=== PATIENT | female | born 1970 | race Two or more races ===

== ENCOUNTER 2018-07-15 20:32 | Emergency (ER) | payer SELFPAY ==
[~2018-07-15] VITALS: Ht 157.5 cm; Wt 63.5 kg
[2018-07-15 22:43] LABS: Urine Bacteria FEW /hpf (None Seen); Urine Blood TRACE /uL (Negative); Urine Mucus FEW (None Seen); Urine WBC 2 /hpf (0 - 5)
[2018-07-16 04:41] LABS: Albumin 3.7 g/dL (3.4-5.0); BUN/Creatinine Ratio 21.5; Calcium 8.5 mg/dL (8.5-10.1); Potassium 4.1 mmol/L (3.5-5.1)
[2018-07-16 04:42] LABS: Basophils # (auto) 0 uL; Basophils % (auto) 0.3 % (0.0-2.0); Eosinophils # (auto) 0.2 uL; Eosinophils % (auto) 2.8 % (0.0-7.0); Hematocrit 42.5 % (36.0-46.0); Hemoglobin 14.2 g/dL (12.2-16.2); Lymphocytes % (auto) 32.1 % (10.0-50.0); Mean Corpuscular Hgb Conc. 33.4 g/dL (32.0-36.0); Mean Corpuscular Volume 89.7 fL (80.0-100.0); Monocytes # (auto) 0.5 uL; Monocytes % (auto) 8.1 % (0.0-12.0); Neutrophils # (auto) 3.5 uL; Neutrophils % (auto) 56.7 % (37.0-80.0); Nucleated Red Blood Cells % 0.1 %; Platelet Count (auto) 282 10^3/uL (140-450); Red Blood Cells 4.74 10^6/uL (4.0-5.20); Red Cell Distribution Width 13.3 % (11.8-14.3); White Blood Cell 6.2 10^3/uL (4.4-10.8)
[2018-07-16 04:44] LABS: Bilirubin, Total 0.5 mg/dL (0.2-1.0); Total Protein 7.7 g/dL (6.4-8.2)
[2018-07-16 07:31] VITALS: BP 118/68
[2018-07-16] MEDS ORDERED: predniSONE 20 MG TAB PO ONE (08:00)
== END 2018-07-16 09:35 | disposition home or self-care (01) ==
LOC: ER 20:36
DX: F41.9 Anxiety disorder, unspecified (principal); G51.0 Bell's palsy
CPT/HCPCS: 36415; 70450; 80053; 81001; 85025; 99284; J7512

== ENCOUNTER 2021-07-10 04:54 | Emergency (ER) | payer BC, MEDICAID ==
[~2021-07-10] VITALS: Ht 152.4 cm; Wt 68.0 kg
[2021-07-10 07:32] LABS: Basophils # (auto) 0 10 ^3/uL (0-0.2); Basophils % (auto) 0.3 % (0.0-2.0); Eosinophils # (auto) 0 10 ^3/uL (0-0.8); Eosinophils % (auto) 0.6 % (0.0-7.0); Hematocrit 41.9 % (36.0-46.0); Hemoglobin 14.3 g/dL (12.2-16.2); Lymphocytes # (auto) 1.5 10 ^3/uL (0.4-5.4); Lymphocytes % (auto) 19.4 % (10.0-50.0); Mean Corpuscular Hemoglobin 29.9 pg (28.0-32.0); Mean Corpuscular Hgb Conc. 34.1 g/dL (32.0-36.0); Mean Corpuscular Volume 87.7 fL (80.0-100.0); Monocytes # (auto) 0.4 10 ^3/uL (0-1.3); Monocytes % (auto) 5.2 % (0.0-12.0); Neutrophils # (auto) 5.8 10 ^3/uL (1.6-8.6); Neutrophils % (auto) 74.5 % (37.0-80.0); Nucleated Red Blood Cells % 0.1 %; Red Blood Cells 4.78 10^6/uL (4.0-5.20); Red Cell Distribution Width 13.8 % (11.8-14.3); White Blood Cell 7.8 10^3/uL (4.4-10.8)
[2021-07-10 07:54] LABS: Potassium 4.4 mmol/L (3.5-5.1)
[2021-07-10 08:08] LABS: Albumin 3.7 g/dL (3.4-5.0); BUN/Creatinine Ratio 18.3; Bilirubin, Total 0.3 mg/dL (0.2-1.0); Total Protein 7.5 g/dL (6.4-8.2)
[2021-07-10] MEDS ORDERED: MECLIZINE HCL 25 MG TAB PO ONE (08:45)
[2021-07-10] MEDS ORDERED: MECL25TA18 PO (11:12)
[2021-07-10 12:22] VITALS: BP 128/77
== END 2021-07-10 12:22 | disposition home or self-care (01) ==
LOC: EDBD 04:54 → ER 04:54
DX: R42 Dizziness and giddiness (principal); R11.0 Nausea; R51.9 Headache, unspecified
CPT/HCPCS: 36415; 70450; 80053; 84484; 85025; 93005; 99285; J8597

== ENCOUNTER 2023-06-24 13:52 | Emergency (ER) | payer MEDICAID ==
[~2023-06-24] VITALS: Ht 157.5 cm; Wt 68.1 kg
[~2023-06-24 13:52] MED LIST: MECL1TAB32 PO
[2023-06-24] MEDS ORDERED: SODIUM CHLORIDE 0.9% 1,000 ML IV ONE (14:00)
[2023-06-24 14:29] LABS: Basophils # (auto) 0 10 ^3/uL (0-0.2); Basophils % (auto) 0.2 % (0.0-2.0); Eosinophils # (auto) 0.1 10 ^3/uL (0-0.8); Eosinophils % (auto) 0.7 % (0.0-7.0); Hematocrit 36.2 % (36.0-46.0); Hemoglobin 12.4 g/dL (12.2-16.2); Lymphocytes # (auto) 2.4 10 ^3/uL (0.4-5.4); Lymphocytes % (auto) 25.2 % (10.0-50.0); Mean Corpuscular Hemoglobin 30.6 pg (28.0-32.0); Mean Corpuscular Hgb Conc. 34.4 g/dL (32.0-36.0); Monocytes # (auto) 0.5 10 ^3/uL (0-1.3); Monocytes % (auto) 5.1 % (0.0-12.0); Neutrophils # (auto) 6.5 10 ^3/uL (1.6-8.6); Neutrophils % (auto) 68.8 % (37.0-80.0); Red Blood Cells 4.06 10^6/uL (4.0-5.20); Red Cell Distribution Width 12.9 % (11.8-14.3); White Blood Cell 9.4 10^3/uL (4.4-10.8)
[2023-06-24 14:55] LABS: Alanine Aminotransferase 22 U/L (7-40); Albumin 3.8 g/dL (3.2-4.8); Alkaline Phosphatase 77 U/L (46-116); Anion Gap 7 (5-15); Aspartate Aminotransferase 15 U/L (13-40); Bilirubin, Total 0.5 mg/dL (0.2-1.0); Blood Urea Nitrogen 14 mg/dL (9-23); Calcium 9.2 mg/dL (8.5-10.1); Carbon Dioxide 25 mmol/L (20-30); Chloride 109 mmol/L (98-107); Glucose 114 mg/dL (74-106); Sodium 141 mmol/L (136-145); Total Protein 5.9 g/dL (5.7-8.2)
[2023-06-24 20:26] LABS: Urine Bacteria NONE SEEN /hpf (None Seen); Urine Blood Negative /uL (Negative); Urine Clarity Clear (Clear); Urine Color Colorless (Yellow); Urine Protein, UAD Negative (Negative); Urine Specific Gravity 1.011 (1.001-1.035); Urine Urobilinogen Normal (Negative); Urine WBC 1 /hpf (0 - 5)
[2023-06-24] MEDS ORDERED: diphenhdrAMINE HCL 50 MG/1 ML VL IV ONE (20:45)
[2023-06-24] MEDS ORDERED: MECLIZINE HCL 25 MG TAB PO ONE (20:45)
[2023-06-24] MEDS ORDERED: MECL1TAB42 PO (23:04)
[2023-06-24 23:23] VITALS: BP 123/66; PULSE 68; RESP 20; TEMP 98.5; O2SAT 98
== END 2023-06-24 23:32 | disposition home or self-care (01) ==
LOC: EDBD 13:52 → ER 13:52
DX: R42 Dizziness and giddiness (principal); R55 Syncope and collapse; I95.9 Hypotension, unspecified; T59.91XA Toxic effect of unspecified gases, fumes and vapors, accidental (unintentional), initial encounter; Y92.9 Unspecified place or not applicable
CPT/HCPCS: 36415; 70450; 71045; 80053; 81001; 83605; 84484; 85025; 93005; 96361; 96374; 99285; J1200; J7030; J8597

== ENCOUNTER 2023-12-25 23:12 | Emergency (ER) | payer MEDICAID ==
[~2023-12-25] VITALS: Ht 157.5 cm; Wt 70.0 kg
[~2023-12-25 23:12] MED LIST changes: +MECL-90 PO; -MECL1TAB32 PO; +MECL1TAB42 PO
[2023-12-26] MEDS: ONDANSETRON ODT 4 MG TAB PO ONE (00:36)
[2023-12-26 01:05] LABS: Urine Bacteria FEW /hpf (None Seen); Urine Blood Negative /uL (Negative); Urine Clarity Turbid (Clear); Urine Protein, UAD Negative (Negative); Urine Specific Gravity 1.008 (1.001-1.035); Urine Urobilinogen Normal (Negative); Urine WBC 15 /hpf (0 - 5); Urine pH 6.5 (5.0-9.0)
[2023-12-26 01:08] LABS: Urine Color Straw (Yellow)
[2023-12-26 02:02] LABS: Basophils # (auto) 0 10 ^3/uL (0-0.2); Basophils % (auto) 0.7 % (0.0-2.0); Eosinophils # (auto) 0.1 10 ^3/uL (0-0.8); Eosinophils % (auto) 1.4 % (0.0-7.0); Hematocrit 42.5 % (36.0-46.0); Hemoglobin 14.9 g/dL (12.2-16.2); Lymphocytes # (auto) 2.4 10 ^3/uL (0.4-5.4); Lymphocytes % (auto) 39.1 % (10.0-50.0); Mean Corpuscular Hemoglobin 30.4 pg (28.0-32.0); Mean Corpuscular Volume 86.7 fL (80.0-100.0); Monocytes # (auto) 0.5 10 ^3/uL (0-1.3); Monocytes % (auto) 8.3 % (0.0-12.0); Neutrophils # (auto) 3.2 10 ^3/uL (1.6-8.6); Neutrophils % (auto) 50.5 % (37.0-80.0); Nucleated Red Blood Cells % 0.1 %; Red Cell Distribution Width 13.9 % (11.8-14.3); White Blood Cell 6.3 10^3/uL (4.4-10.8)
[2023-12-26] MEDS: DICYCLOMINE HCL (10MG/ML) 2 ML AMPULE IM ONE (02:03)
[2023-12-26 02:06] LABS: Chloride 111 mmol/L (98-107); Potassium 3.8 mmol/L (3.5-5.1); Sodium 139 mmol/L (136-145)
[2023-12-26 02:07] LABS: Anion Gap 7 (5-15); Carbon Dioxide 21 mmol/L (20-30)
[2023-12-26 02:08] LABS: Calcium 10.4 mg/dL (8.7-10.4)
[2023-12-26 02:12] LABS: Glucose 103 mg/dL (74-106)
[2023-12-26 02:13] LABS: BUN/Creatinine Ratio 19.7 (10.0-20.0); Blood Urea Nitrogen 13 mg/dL (9-23)
[2023-12-26] MEDS ORDERED: ZOFR4T PO (02:47)
[2023-12-26] MEDS ORDERED: DICY10CA PO (02:47)
[2023-12-26 02:56] VITALS: BP 127/50; PULSE 69; RESP 19; TEMP 97.6; O2SAT 97
== END 2023-12-26 02:58 | disposition home or self-care (01) ==
LOC: EEVIPCON 23:12 → ER 23:12
DX: R55 Syncope and collapse (principal); R10.13 Epigastric pain; Z79.899 Other long term (current) drug therapy
CPT/HCPCS: 36415; 80048; 81001; 82962; 85025; 93005; 96372; 99284; J0500; Q0162